=== PATIENT | male | born 1960 | race Caucasian/White ===

== ENCOUNTER 2017-07-18 18:00 | Emergency (ER) | payer BC ==
[2017-07-18 18:33] VITALS: BP 135/76
--- NOTE | 2017-07-18 18:41 | UC ---
Lower Extremity/Ankle HPI - HPI Summary HPI Summary: 56 YEAR OLD MALE PRESENTS WITH COMPLAINS OF RIGHT LEG PAIN WITH NO TRAUMA. - History of Current Complaint Chief Complaint: UCLowerExtremity Stated Complaint: RIGHT LEG PAIN Time Seen by Provider: 07/18/17 18:36 Hx Obtained From: Patient Onset/Duration: Sudden Onset Severity Initially: Moderate Severity Currently: Moderate Pain Scale Used: 0-10 Numeric - 7 - Allergies/Home Medications Allergies/Adverse Reactions: Allergies Allergy/AdvReac Type Severity Reaction Status Date / Time No Known Allergies Allergy Verified 07/18/17 18:33 Home Medications: Home Medications Buprenorphine [Butrans] 7.5 mcg TD WEEKLY 07/18/17 [History Confirmed 07/18/17] Cholecalciferol TAB* [Vitamin D TAB*] 2,000 units PO DAILY 07/18/17 [History Confirmed 07/18/17] Fexofenadine (NF) [Liudmila 180 (NF)] 180 mg PO BEDTIME 07/18/17 [History Confirmed 07/18/17] Gabapentin CAP(*) [Neurontin 300 CAP(*)] 600 mg PO BEDTIME 07/18/17 [History Confirmed 07/18/17] Lisinopril TAB* [Prinivil TAB 5 MG*] 5 mg PO DAILY 07/18/17 [History Confirmed 07/18/17] Multivitamins/Minerals TAB* [Theragran/minerals TAB*] 1 tab PO DAILY 07/18/17 [ History Confirmed 07/18/17] tiZANidine TAB* [Zanaflex TAB*] 2 mg PO BEDTIME 07/18/17 [History Confirmed ] PMH/Surg Hx/FS Hx/Imm Hx Previously Healthy: Yes - Surgical History Surgical History: Yes Surgery Procedure, Year, and Place: appendix. partial bowel d/t diverticulitis - Social History Alcohol Use: None Substance Use Type: None Smoking Status (MU): Light Every Day Tobacco Smoker Amount Used/How Often: < 1/2 ppd Review of Systems Constitutional: Negative Skin: Negative Eyes: Negative ENT: Negative Respiratory: Negative Cardiovascular: Negative Gastrointestinal: Negative Genitourinary: Negative Motor: Negative Neurovascular: Negative Musculoskeletal: Myalgia, Other: - RIGHT LEG PAIN Neurological: Negative Psychological: Negative All Other Systems Reviewed And Are Negative: Yes Physical Exam Triage Information Reviewed: Yes Appearance: Pain Distress Vital Signs: Initial Vital Signs Temp 37.4 C 07/18/17 18:27 Pulse 78 07/18/17 18:27 Resp 17 07/18/17 18:27 BP 135/76 07/18/17 18:27 Pulse Ox 98 07/18/17 18:27 Eye Exam: Normal ENT Exam: Normal Dental Exam: Normal Neck exam: Normal Neck: Positive: 1 Respiratory Exam: Normal Cardiovascular Exam: Normal Abdominal Exam: Normal Musculoskeletal Exam: Normal Neurological Exam: Normal Psychological Exam: Normal Skin Exam: Normal Lower Extremity Course/Dx - Differential Dx/Diagnosis Provider Diagnoses: RIGHT GREATER TROCHANTERIC BURSITIS Discharge - Discharge Plan Condition: Stable Disposition: HOME Prescriptions: Diclofenac 1% GEL (NF) [Voltaren 1% GEL (NF)] 2 gm TOPICAL TID PRN #1 tube PRN Reason: Pain Methylprednisolone [Medrol Dosepak 4 MG*] 4 mg PO .SEE RABIA INSTRUCTION #21 tab Patient Education Materials: Iliotibial Band Syndrome (ED) Referrals: [facility] [Primary Care Provider] -
== END 2017-07-18 18:49 | disposition home or self-care (01) ==
LOC: UCCORT 18:00
DX: M70.61 Trochanteric bursitis, right hip (principal); Y93.9 Activity, unspecified; F17.210 Nicotine dependence, cigarettes, uncomplicated
CPT/HCPCS: 99202; G0463